=== PATIENT | female | born 1940 | race Caucasian/White ===

== ENCOUNTER → 2020-11-14 | Outpatient (CLI) | payer MEDICARE, OTHER ==
--- NOTE | 2020-11-15 09:52 | RAD ---
XR KNEE_LT 1-2 VIEWS, XR KNEE_AP BILAT STANDING History: Reason: LEFT KNEE PAIN / Spl. Instructions: / History: Technique: AP standing views of the knees with 2 additional views of the left knee. Comparison: None. Findings: Advanced left knee degenerative changes most prominent within the medial and patellofemoral compartme nts. Small knee joint effusion. Genu varus alignment. Vascular calcifications. No dislocation. No fra cture. Partially imaged moderate right medial compartment DJD. Impression: 1. Advanced left knee DJD. Electronically signed by: Mukesh Hallman DO (11/15/2020 9:49 AM) [id number]
== END ==
LOC: RAD 10:03
PROVIDERS: ATTEND Physician Assistant
DX: M17.12 Unilateral primary osteoarthritis, left knee (principal)
CPT/HCPCS: 73560; 73565